=== PATIENT | male | born 1990 | race Caucasian/White ===

== ENCOUNTER → 2025-02-09 07:20 | Outpatient (REF) | payer BC, SELFPAY | LOC: RAD 07:20 | PROVIDERS: ATTENDING PHYSICIAN Nurse Practitioner | DX: Z00.00 Encounter for general adult medical examination without abnormal findings (principal); R74.01 Elevation of levels of liver transaminase levels; Z68.33 Body mass index [BMI] 33.0-33.9, adult | CPT/HCPCS: 76700 ==

== ENCOUNTER 2025-05-02 12:21 | Emergency (ER) | payer SELFPAY ==
[2025-05-02 12:31] VITALS: BP 145/92
[2025-05-02 13:08] VITALS: BMI 32.6
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
[2025-05-02] MEDS: ADACEL 0.5 ML IM (13:15)
[2025-05-02 16:47] VITALS: BP 127/75
== END 2025-05-02 16:48 | disposition home or self-care (01) ==
LOC: EMR 12:21
PROVIDERS: EMERGENCY PHYSICIAN Emergency Medicine; FAMILY PHYSICIAN Nurse Practitioner
DX: S62.617A Displaced fracture of proximal phalanx of left little finger, initial encounter for closed fracture (principal); S09.90XA Unspecified injury of head, initial encounter; S00.81XA Abrasion of other part of head, initial encounter; S10.91XA Abrasion of unspecified part of neck, initial encounter; S80.212A Abrasion, left knee, initial encounter; V19.9XXA Pedal cyclist (driver) (passenger) injured in unspecified traffic accident, initial encounter; Y93.55 Activity, bike riding; Y92.410 Unspecified street and highway as the place of occurrence of the external cause; H61.23 Impacted cerumen, bilateral; Z23 Encounter for immunization
CPT/HCPCS: 99284; 90471; 70450; 70486; 72125; 73130; 73564; 90715